=== PATIENT | male | born 2000 | race Caucasian/White ===

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

== ENCOUNTER 2022-07-06 04:56 | Emergency (ER) | payer BC, OTHER ==
[~2022-07-06] VITALS: Ht 162.6 cm; Wt 68.0 kg
[~2022-07-06 04:56] MED LIST: EPIN0.3P3 IJ
--- NOTE | 2022-07-06 05:05 | NUR ---
BIB FAMILY WITH C/O MID STERNAL CHEST PAIN W/ L ARM HAND NUMBNESS X 1 HR PARCEL POST DELIVERY. PT IS AAO X 4, SATURATION AT 100% ON RA, SR ON THE MONITOR, HR IS 69. PT CONNECTED TO MONITOR AND PULSE OX. AWAITING TO BE KOLE BY MD. KEPT COMFORTABLE.
--- NOTE | 2022-07-06 05:39 | NUR ---
PT REFUSED BLOOD DRAW AND SAID HE JUST WANTS TO GO HOME. PT SIGNED AMA FORM. AWARE Addendum: 07/06/22 at 0541 by MAMIE PT LEFT WITHOUT BEING SEEN BY .
[2022-07-06 05:42] VITALS: BP 149/71
== END 2022-07-06 05:43 | disposition left against medical advice (07) ==
LOC: ER 04:58
DX: Z53.21 Procedure and treatment not carried out due to patient leaving prior to being seen by health care provider (principal)

== ENCOUNTER 2023-03-05 11:37 | Emergency (ER) | payer OTHER ==
[~2023-03-05] VITALS: Ht 162.6 cm; Wt 64.4 kg
--- NOTE | 2023-03-05 11:49 | NUR ---
pt in bed AOx4 C/O R side rib pain. 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
--- NOTE | 2023-03-05 12:43 | NUR ---
DPatient discharged to home in stable condition. Written and verbal after care instructions given. Patient verbalizes understanding of instruction.
[2023-03-05 12:44] VITALS: BP 111/73; TEMP 98.1; O2SAT 100
== END 2023-03-05 12:44 | disposition home or self-care (01) ==
LOC: ER 11:37
DX: S20.211A Contusion of right front wall of thorax, initial encounter (principal); X58.XXXA Exposure to other specified factors, initial encounter; Y93.89 Activity, other specified; Y92.89 Other specified places as the place of occurrence of the external cause; Y99.8 Other external cause status
CPT/HCPCS: 71100-TC